=== PATIENT | male | born 1970 | race Caucasian/White ===

== ENCOUNTER 2017-09-02 14:02 | Emergency (ER) | payer OTHER ==
[2017-09-02 14:14] VITALS: BP 131/86; PULSE 79; TEMP 98.3; BMI 28.8
[2017-09-02] MEDS ORDERED: KETOROLAC TROMETHAMINE 60 MG/2 ML VIAL ONE (16:06)
--- NOTE | 2017-09-02 16:10 | PDOC ---
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 Patient reports that he felt lower back pain during that time, pain is worse on left side. Patient denies any radiation of pain down the legs, saddle anesthesia, drop foot , or any incontinency. Patient denies taking anything for pain since this occurred last night around 11 PM. Occurred: reports: yesterday Severity: reports: moderate (LOWER BACK PAIN MORE ON LEFT ) Pain Location: reports: back (LOWER BACK MORE ON LEFT ) Method of Injury: Yes: other (forcing a door open last night at work [employer]) Modifying Factors: improves with: None Loss of Consciousness: no loss of consciousness Associated Symptoms (Fall): denies symptoms Past History - Past Medical History Allergies/Adverse Reactions: Allergies Allergy/AdvReac Type Severity Reaction Status Date / Time No Known Allergies Allergy Verified 09/02/17 14:10 Home Medications: Ambulatory Orders Enalapril Maleate 5 mg PO ASDIR 09/02/17 HTN: Yes - Suicide/Smoking/Psychosocial Hx Smoking History: Never smoked Hx Alcohol Use: Yes Drug/Substance Use Hx: No Substance Use Type: Alcohol Review of Systems - Review of Systems Able to Perform ROS?: Yes Constitutional: No: Symptoms Reported HEENTM: No: Symptoms Reported Respiratory: No: Symptoms reported Cardiac (ROS): No: Symptoms Reported ABD/GI: No: Symptoms Reported : No: Symptoms Reported Musculoskeletal: Yes: Back Pain (lower back more on left ) Integumentary: No: Symptoms Reported Neurological: No: Symptoms reported *Physical Exam - Vital Signs Last Vital Signs Temp Pulse Resp BP Pulse Ox 98.3 F 79 19 131/86 100 09/02/17 14:10 09/02/17 14:10 09/02/17 14:10 09/02/17 14:10 09/02/17 14:10 - Physical Exam General Appearance: Yes: Appropriately Dressed Respiratory/Chest: positive: Lungs Clear, Normal Breath Sounds. negative: Chest Tender, Respiratory Distress Cardiovascular: positive: Regular Rhythm, Regular Rate, S1, S2 Musculoskeletal: positive: Normal Inspection, Decreased Range of Motion (slight at waist with flexion ), Other (left sacral tenderness with palpation ). negative: CVA Tenderness, CVA Tenderness (R), CVA Tenderness (L), Muscle Spasm, Vertebral Tenderness Extremity: positive: Normal Capillary Refill, Normal Inspection, Normal Range of Motion Integumentary: positive: Normal Color Neurologic: positive: Alert, Normal Response, Motor Strength 5/5 (legs b/l ), Responsive, Other (negative SLR b/l ). negative: Respond to painful stimul, Numbness, Sensory Deficit Deep Tendon Reflexes: Knee (L): 4+, Knee (R): 4+ Medical Decision Making - Medical Decision Making 09/02/17 16:10 Patient is a 46 year old [employer] with history of hypertension here today complaining of lower back pain since last night when he was trying to force open a door while on duty. Patient reports that he felt lower back pain during that time, pain is worse on left side. Patient denies any radiation of pain down the legs, saddle anesthesia, drop foot, or any incontinency. Patient denies taking anything for pain since this occurred last night around 11 PM. Lower back pain Plan: Toradol 60 mg IM now To be placed off duty will have to go to occupational health prior to return to work Follow-up with orthopedist if pain continues *DC/Admit/Observation/Transfer Diagnosis at time of Disposition: Low back strain Qualifiers: Encounter type: initial encounter Qualified Code(s): S39.012A - Strain of muscle, fascia and tendon of lower back, initial encounter; S39.012A - Strain of muscle, fascia and tendon of lower back, initial encounter - Discharge Dispostion Disposition: HOME Condition at time of disposition: Stable - Referrals Referrals: Dorene Valdez [Primary Care Provider] - Smith August MD [Staff Physician] - - Patient Instructions Additional Instructions: Avoid any strenuous exercise or lifting Take ibuprofen as needed as directed by bunghole borer for pain Return to emergency room for worsening pain any numbness or weakness in the legs or any other symptoms worsen Follow up with occupational health prior to return to work Follow-up with orthopedist if pain continues and back Patient voiced understanding of discharge instructions and all questions were answered
[2017-09-02] MEDS ORDERED: KETOROLAC TROMETHAMINE 60 MG/2 ML VIAL IM ONE (16:18)
== END 2017-09-02 16:31 | disposition home or self-care (01) ==
LOC: JERFT 14:02
PROC: 3E0233Z Introduction of Anti-inflammatory into Muscle, Percutaneous Approach (ICD-10-PCS; principal; 2017-09-02)
DX: S39.012A Strain of muscle, fascia and tendon of lower back, initial encounter (principal); I10 Essential (primary) hypertension; X50.0XXA Overexertion from strenuous movement or load, initial encounter; Y93.89 Activity, other specified; Y92.69 Other specified industrial and construction area as the place of occurrence of the external cause; Y99.0 Civilian activity done for income or pay
CPT/HCPCS: 99281-25

== ENCOUNTER 2018-11-26 16:24 | Emergency (ER) | payer OTHER ==
[2018-11-26 16:33] VITALS: BP 136/88; PULSE 88; BMI 29.6
--- NOTE | 2018-11-26 16:58 | PDOC ---
History of Present Illness - General Chief Complaint: Back Pain Stated Complaint: BACK PAIN/YFD Time Seen by Provider: 11/26/18 16:58 Past History - Past Medical History Allergies/Adverse Reactions: Allergies Allergy/AdvReac Type Severity Reaction Status Date / Time No Known Allergies Allergy Verified 09/02/17 14:10 Home Medications: Ambulatory Orders Enalapril Maleate 5 mg PO ASDIR 09/02/17 COPD: No HTN: Yes - Immunization History Immunization Up to Date: Yes - Suicide/Smoking/Psychosocial Hx Smoking History: Never smoked Hx Alcohol Use: No Drug/Substance Use Hx: No Substance Use Type: Alcohol *Physical Exam - Vital Signs Last Vital Signs Temp Pulse Resp BP Pulse Ox 88 16 136/88 97 11/26/18 16:31 11/26/18 16:31 11/26/18 16:31 11/26/18 16:31 Moderate Sedation - Procedure Monitoring Vital Signs: Procedure Monitoring Vital Signs Temperature Pulse Rate 88 11/26/18 16:31 Respiratory Rate 16 11/26/18 16:31 Blood Pressure 136/88 11/26/18 16:31 O2 Sat by Pulse Oximetry (%) 97 11/26/18 16:31
[2018-11-26] MEDS ORDERED: METHOCARBAMOL 500 MG TABLET PO ONE (17:42)
[2018-11-26] MEDS ORDERED: IBUPROFEN 600 MG TABLET (FP) PO ONE ×2 (17:42→17:54)
[2018-11-26] MEDS ORDERED: METHOCARBAMOL 500 MG TABLET ONE (17:54)
--- NOTE | 2018-11-26 18:28 | PDOC ---
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 Pain does not radiate anywhere , it is localized to the lower back, no numbness/tingling anywhere, no weakness , no urinary symptoms, no incontinence, no saddle paresthesia, no hip pain, no pain with ambulation. DEnies mid back pain, no neck pain, no head trauma, no pain anywhere else. Denies any symptoms of smoke inhalation, denies cough, no grayish sputum, no CP , no SOB, no difficulty breathing, no sore throat 11/26/18 18:59 Past History - Past Medical History Allergies/Adverse Reactions: Allergies Allergy/AdvReac Type Severity Reaction Status Date / Time No Known Allergies Allergy Verified 09/02/17 14:10 Home Medications: Ambulatory Orders Enalapril Maleate 5 mg PO ASDIR 09/02/17 Methocarbamol [Robaxin-750] 750 mg PO TID 3 Days #15 tablet 11/26/18 Naproxen 375 mg PO TID 3 Days #15 tablet 11/26/18 COPD: No HTN: Yes - Immunization History Immunization Up to Date: Yes - Suicide/Smoking/Psychosocial Hx Smoking History: Never smoked Hx Alcohol Use: No Drug/Substance Use Hx: No Substance Use Type: Alcohol Review of Systems - Review of Systems Able to Perform ROS?: Yes Constitutional: No: Chills, Fever, Malaise, Night Sweats HEENTM: No: Eye Pain, Recent change in vision, Throat Pain Respiratory: No: Cough, Shortness of Breath Cardiac (ROS): No: Chest Pain, Palpitations, Chest Tightness ABD/GI: No: Diarrhea, Nausea, Vomiting, Abdominal cramping : No: Dysuria, Hematuria Musculoskeletal: Yes: Back Pain Integumentary: No: Rash Neurological: No: Headache, Numbness, Dizziness Psychiatric: No: Change in Appetite Endocrine: No: Unexplained Weight Loss *Physical Exam - Vital Signs Last Vital Signs Temp Pulse Resp BP Pulse Ox 88 16 136/88 97 11/26/18 16:31 11/26/18 16:31 11/26/18 16:31 11/26/18 16:31 - Physical Exam General Appearance: Yes: Nourished. No: Apparent Distress HEENT: positive: PATRICIA, Normal ENT Inspection, Normal Voice. negative: Pale Conjunctivae, Scleral Icterus (R), Scleral Icterus (L) Neck: positive: Supple. negative: Decreased range of motion, Tender midline Respiratory/Chest: positive: Lungs Clear, Normal Breath Sounds. negative: Respiratory Distress, Accessory Muscle Use Cardiovascular: positive: Regular Rhythm, Regular Rate Gastrointestinal/Abdominal: positive: Normal Bowel Sounds, Soft. negative: Tender Musculoskeletal: positive: Normal Inspection. negative: CVA Tenderness, Decreased Range of Motion Extremity: positive: Normal Capillary Refill, Normal Inspection, Normal Range of Motion, Other (back withou skin changes, no midline tenderness, (+)R paralumbar muscular tenderness, reproducible, with muscle spasm. FROM R hip without tenderness. bilateral LEs with FROM, 5/5 strength, Equal LE reflexes, full sensory function, good LE cap refill). negative: Tender, Pedal Edema Integumentary: positive: Normal Color, Dry. negative: Jaundice, Rash Neurologic: positive: Fully Oriented, Alert, Normal Mood/Affect Moderate Sedation - Procedure Monitoring Vital Signs: Procedure Monitoring Vital Signs Temperature Pulse Rate 88 11/26/18 16:31 Respiratory Rate 16 11/26/18 16:31 Blood Pressure 136/88 11/26/18 16:31 O2 Sat by Pulse Oximetry (%) 97 11/26/18 16:31 ED Treatment Course - Medications Given in the ED: ED Medications Discontinued Medications Generic Name Dose Route Start Last Admin Trade Name Rebecca PRN Reason Stop Dose Admin Ibuprofen 600 mg 11/26/18 17:42 11/26/18 18:01 Motrin - PO 11/26/18 17:43 600 mg ONCE ONE Administration Methocarbamol 1,000 mg 11/26/18 17:42 11/26/18 18:01 Robaxin - PO 11/26/18 17:43 1,000 mg ONCE ONE Administration Medical Decision Making - Medical Decision Making 11/26/18 19:19 48 yo M w/ muscle spasm to lower back. No indication for imaging at this time. no bony tenderness. WIll give NSAIDs, robaxin and will have pt follow up with his PMD and his orthopedist. Return for worsening/concerning symptoms Pt verbalizes understanding and agrees with plan *DC/Admit/Observation/Transfer Diagnosis at time of Disposition: Low back pain Qualifiers: Chronicity: acute Back pain laterality: right Sciatica presence: without sciatica Qualified Code(s): M54.5 - Low back pain - Discharge Dispostion Disposition: HOME Condition at time of disposition: Stable Decision to Admit order: No - Prescriptions Prescriptions: Methocarbamol [Robaxin-750] 750 mg PO TID 3 Days #15 tablet Naproxen 375 mg PO TID 3 Days #15 tablet - Referrals - Patient Instructions Printed Discharge Instructions: DI for Low Back Pain Additional Instructions: Apply cold compresses/ice for the first 48hours following injury. After 48hours , you can apply warm compresses. FOllow up with your PCP in 1-2 days and with your orthopedist as needed. Return to the ER for worsening/concerning symptoms - Post Discharge Activity
== END 2018-11-26 18:38 | disposition home or self-care (01) ==
LOC: JER 16:24 → JERFT 16:24 → JER 18:38
DX: M62.830 Muscle spasm of back (principal); X50.0XXA Overexertion from strenuous movement or load, initial encounter; Y93.89 Activity, other specified; Y92.89 Other specified places as the place of occurrence of the external cause; Y99.0 Civilian activity done for income or pay; I10 Essential (primary) hypertension
CPT/HCPCS: 99281-25